=== PATIENT | female | born 1985 | race Caucasian/White ===

== ENCOUNTER 2018-11-16 14:17 | Outpatient (CLI) | payer MEDICAID ==
[~2018-11-16] VITALS: Ht 144.8 cm; Wt 63.2 kg
[~2018-11-16 14:17] MED LIST: FERR27TA PO; PREN-39 PO
[2018-11-16 15:18] VITALS: Ht 144.8 cm; Wt 63.2 kg
[2018-11-16 15:19] VITALS: BP 103/52; PULSE 69; RESP 18
[2018-11-16] MEDS ORDERED: TERBUTALINE 1 MG/ML INJ SC ONE (20:00)
[2018-11-16] MEDS ORDERED: LACTATED RINGER'S 1,000 ML IV SCH (20:00)
--- NOTE | 2018-11-16 23:46 | PN ---
Triage Information Date/Time November 16, 2018 Reason for visit: Uterine contractions Weeks of Gestation 33w 6d /Para 5/2 Diabetes: none Hypertention: none Objective Vital Signs Date Temp Pulse Resp B/P (MAP) Pulse Ox O2 O2 Flow FiO2 Time Delivery Rate 11/16/18 97.5 69 18 103/52 15:19 (69) Heart Rate: 140's Heart Rate Comments Accels to 170 bpm. No decels. Contractions: >10 Minutes Apart Exam closed Results/Medications Result Diagram: 11/16/18 1610 Results 24 hrs Laboratory Tests Test 11/16/18 16:10 11/16/18 16:45 White Blood Count 7.3 Red Blood Count 4.01 L Hemoglobin 10.1 L Hematocrit 33.4 L Mean Corpuscular Volume 83.3 Mean Corpuscular Hemoglobin 25.2 L Mean Corpuscular Hemoglobin Concent 30.2 L Red Cell Distribution Width 21.4 H Platelet Count 211 Mean Platelet Volume 11.0 H Immature Granulocytes % 0.400 Neutrophils % 66.0 Lymphocytes % 25.8 Monocytes % 7.0 Eosinophils % 0.5 Basophils % 0.3 Nucleated Red Blood Cells % 0.0 Immature Granulocytes # 0.030 Neutrophils # 4.8 Lymphocytes # 1.9 Monocytes # 0.5 Eosinophils # 0.0 Basophils # 0.0 Nucleated Red Blood Cells # 0.0 Urine Color YELLOW Urine Clarity CLEAR Urine pH 6.0 Urine Specific [place] 1.011 Urine Ketones 2+ H Urine Nitrite NEGATIVE Urine Bilirubin NEGATIVE Urine Urobilinogen NEGATIVE Urine Leukocyte Esterase NEGATIVE Urine Hemoglobin NEGATIVE Urine Glucose NEGATIVE Urine Total Protein NEGATIVE Medications Current Medications Lactated Ringer's 1,000 ml @ 500 mls/hr Q2H IV Last administered on 11/16/18at 20:25; Admin Dose 500 MLS/HR; Start 11/16/18 at 20:00 Imaging Results BPP 8/8 with an MANDEEP of 12.9. Cervix is 3.3 cm and closed Disposition: Discharge Assessment/Plan A: IUP at 33w 6d. False labor. P: After IV hydration and one dose of terbutaline it is apparent the pt's discomfort is related to the baby's movements. D/C home with PTL precautions. LYRIC EVANS MD Nov 16, 2018 23:46
== END 2018-11-16 23:50 | disposition home or self-care (01) ==
LOC: OBT 14:17 → L-D 14:18 → OBT 23:50
PROVIDERS: ATTEND Obstetrics & Gynecology
DX: O62.9 Abnormality of forces of labor, unspecified (principal); Z3A.33 33 weeks gestation of pregnancy
CPT/HCPCS: 76817; 76818; 81003; 85025; 87086; J3105; J7120; Z7500; G0463

== ENCOUNTER 2018-12-11 09:00 | Inpatient (IN) | payer MEDICAID ==
[~2018-12-11] VITALS: Ht 149.9 cm; Wt 65.2 kg
[2018-12-14 09:01] VITALS: Ht 149.9 cm; Wt 65.2 kg
[2018-12-14] MEDS ORDERED: OXYTOCIN 30 UNITS/LR 500 ML IV PRN ×2 (09:30→22:00)
[2018-12-14] MEDS ORDERED: BUTORPHANOL 2 MG INJ IV PRN ×2 (09:30→10:00)
[2018-12-14] MEDS ORDERED: MISOPROSTOL 200 MCG TAB PR PRN ×2 (09:30→22:00)
[2018-12-14] MEDS ORDERED: METHYLERGONOVINE 0.2 MG INJ IM PRN ×2 (09:30→22:00)
[2018-12-14] MEDS ORDERED: IBUPROFEN 600 MG TAB PO PRN (09:30)
[2018-12-14] MEDS ORDERED: CARBOPROST 250 MCG INJ IM PRN ×2 (09:30→22:00)
[2018-12-14] MEDS ORDERED: OXYTOCIN 30 UNITS/LR 500 ML IV SCH ×3 (09:30→11:30)
[2018-12-14] MEDS ORDERED: LIDOCAINE 1% (MPF) 30 ML INJ INJ PRN (09:30)
[2018-12-14] MEDS: LACTATED RINGER'S 1,000 ML IV SCH ×4 (09:33→16:01)
[2018-12-14] MEDS ORDERED: MINERAL OIL 240 ML LOT TOP ONE (13:00)
--- NOTE | 2018-12-14 13:07 | PREAC ---
Date/Time of Note Date/Time of Note DATE: 12/14/18 TIME: 13:05 Anesthesia Eval and Record Evaluation Time Pre-Procedure Interview DATE: 12/14/18 TIME: 13:05 Age 33 Sex female NPO: 8 hrs Preoperative diagnosis IUP Planned procedure L&D Epidural Past Medical History Past Medical History: Includes Endo: Diabetes Surgery & Anesthesia Issues No known issue Meds Anticoagulation: No Beta [place] within 24 hr: No Reason Beta [place] not given: Pt. not on B-[place] Reported Medications Ferrous Sulfate (Iron) 1 Tab Tablet, 1 TAB PO BID 05/27/12 Vits W-Ca,Fe,Fa(<1MG) ( Vitamins) 1 Tab Tablet, 1 TAB PO DAILY 05/27/12 Current Medications Lactated Ringer's 1,000 ml @ 125 mls/hr Q8H IV Last administered on 12/14/18at 10:46; Admin Dose 125 MLS/HR; Start 12/14/18 at 09:02 Butorphanol Tartrate (Stadol) 2 mg Q2H PRN IV .PAIN; Start 12/14/18 at 09:30 Lidocaine (Xylocaine 1% (Mpf)) 30 ml ONCE PRN INJ .EPISIOTOMY; Start 12/14/18 at 09:30 Oxytocin/Lactated Ringer's 500 ml @ 500 mls/hr ONCE POST IV ; Start 12/14/18 at 09:30 Oxytocin/Lactated Ringer's 500 ml @ 125 mls/hr POST IV ; Start 12/14/18 at 09:30 Ibuprofen (Motrin) 600 mg ONCE PRN PO .PAIN 1-5; Start 12/14/18 at 09:30 Oxytocin/Lactated Ringer's 500 ml @ 0 mls/hr ONCE PRN IV .VAGINAL BLEEDING Last administered on 12/14/18at 11:36; Admin Dose 2 MLS/HR; Start 12/14/18 at 09:30 Methylergonovine Maleate (Methergine) 0.2 mg ONCE PRN IM .VAGINAL BLEEDING; Start 12/14/18 at 09:30 Carboprost Tromethamine (Hemabate) 250 mcg ONCE PRN IM .VAGINAL BLEEDING; Start 12/14/18 at 09:30 Misoprostol (Cytotec) 1,000 mcg ONCE PRN UT .VAGINAL BLEEDING; Start 12/14/18 at 09:30 Butorphanol Tartrate (Stadol) 1 mg Q2H PRN IV PAIN; Start 12/14/18 at 10:00 Oxytocin/Lactated Ringer's 500 ml @ 0 mls/hr FOR INDUCTION IV ; Start 12/14/18 at 11:30 Ursodiol (Actigall) 300 mg TID PO ; Start 12/14/18 at 13:00 Mineral Oil (Eucerin Lotion) 1 applic ONCE ONCE TOP ; Start 12/14/18 at 13:00; Stop 12/14/18 at 13:01; Status UNV Meds reviewed: Yes Allergies Coded Allergies: No Known Drug Allergy (Verified Allergy, Unknown, 05/27/12) Allergies Reviewed: Yes Labs/Studies Labs Reviewed: Reviewed by anesthesiologist Result Diagram: 12/14/18 0900 Laboratory Tests 12/14/18 09:00 Blood Bank Test 12/14/18 09:00 Antibody Screen NEGATIVE Blood Type O POSITIVE Rh Immune Globulin Candidate NO test: Positive Studies: ECG Pre-procedure Exam Last vitals BP:122/67, P:78, Spo2:100%, T:98,9 Airway: Adequate mouth opening, Adequate thyromental dist Mallampati: Mallampati II Teeth: Normal Lung: Normal Heart: Normal ASA Physical Status ASA physical status: 2 Emergency: None Planned Anesthetic Neuraxial: Epidural Planned Pain Management Epidural Pre-operative Attestations Prior to commencing anesthesia and surgery, the patient was re-evaluated, there was verification of: *The patient's identity *The results of appropriate recent lab work and preoperative vital signs *The above evaluation not changing prior to induction *Anesthetic plan, risk benefits, alternative and complications discussed with patient/family; questions answered; patient/family understands, accepts and wishes to proceed. WHIT MARROQUIN MD Dec 14, 2018 13:07
[2018-12-14] MEDS ORDERED: FENTAnyl 2MCG/ML-ROPIV 0.2% 100 ML ONE (13:09)
[2018-12-14] MEDS ORDERED: DIPHENHYDRAMINE 50 MG INJ IV PRN (13:30)
[2018-12-14] MEDS ORDERED: FENTAnyl 2MCG/ML-ROPIV 0.2% 100 ML BAG EPI SCH (13:30)
[2018-12-14] MEDS ORDERED: MINERAL OIL LIGHT 10 ML VIAL TOP SCH (13:30)
[2018-12-14] MEDS ORDERED: ONDANSETRON 4 MG INJ IV PRN (13:30)
[2018-12-14] MEDS ORDERED: NALOXONE (0.4 MG/ML) INJ IV PRN (13:30)
--- NOTE | 2018-12-14 14:43 | HP ---
Date/Time of Note Date/Time of Note DATE: 12/14/18 TIME: 14:40 OB - History Hx of Present Free Text/Dictation 33-year-old female 5 para 2 AB 2 at 37 weeks and 1 day gestation admitted for induction of labor because of cholestasis Last Menstrual Period: Mar 24, 2018 Estimated Due Date: January 03, 2019 : 5 Para: 2 Spontaneous : 2 Care: Good Care Ultrasounds: Normal mid trimester US Obstetrical Complications: Gestational Diabetes (Crosstable), Other (Cholestasis of ) Past Family/Social History * Past Medical, Surgical, Family and Obstetric Histories reviewed from chart. Blood Type: O+ Rubella: immune RPR/VDRL: Negative GBS Status: Negative HBsAG: Negative OB Admission Exam Physical Exam HEENT: WNL Heart: Rhythm Normal Lungs: Clear, Equal Abdomen: WNL Extremities: Normal Reflexes: Normal Cervical Dilatation: 2cm Effacement: 50% Station: -3 Membranes: Intact Heart Rate: 140's Accelerations: Accelerations Present Decelerations: No Decelerations Varibility: Marked Contractions on Admission: 6-10 Minutes Apart Last 72 hourBlood Glucose Bedside Glucose - 72 Hours Test 12/14/18 14:21 Bedside Glucose 84 mg/dL (70-220) Last 72 hours Lab Results CBC & BMP 12/14/18 09:00 OB Assessment/Plan Reason for admission: induction of labor Other Assessment: Gestational diabetes and cholestasis of 3 at 37 weeks plus Other plan: Pitocin augmentation of labor was started JULIO PETERSON MD Dec 14, 2018 14:43
[2018-12-14] MEDS ORDERED: KETOROLAC 30 MG INJ IV STA (17:55)
--- NOTE | 2018-12-14 17:55 | LDN ---
Date/Time of Note Date/Time of Note DATE: 12/14/18 TIME: 17:53 Delivery Summary Normal spontaneous vaginal delivery of a viable over intact perineum Weeks of Gestation 37+ week Placenta Delivered: Spontaneously, Intact & Complete Meconium: none Episiotomy: No Perineal laceration: 0 Laceration repair: Small right labia minora separation was reapproximated using 2-0 Vicryl stitch in several layers Anesthesia type: Epidural Estimated blood loss: 200 Sponge & Needle done & correct: Yes All needle counts correct: Yes Any foreign bodies felt in the: No Delivery Information Sex Infant Sex: female Apgars 1 Minute: 9 5 Minute: 9 Suctioning Nose & mouth suctioned at nir: Yes Delee suction performed: No Umbilical Cord Umbilical cord with: 3 Vessels Cord presentations: no nuchal cord Cord Blood was obtained: Yes Mother & Baby Disposition Disposition Mom & Baby to Maternity; Good: Yes (Mother and baby were recovered in good condition) Mom transferred to: Other (Maternity) Baby to NICU: No JULIO PETERSON MD Dec 14, 2018 17:55
[2018-12-14 19:52] VITALS: BP 116/59; PULSE 76; RESP 18
[2018-12-14 20:15] VITALS: BP 115/59; PULSE 63; RESP 18
[2018-12-14] MEDS ORDERED: LACTATED RINGER'S 1,000 ML IV* SCH (21:31)
[2018-12-14] MEDS ORDERED: BENZOCAINE 20% 56 ML SPRAY TOP PRN (22:00)
[2018-12-14] MEDS ORDERED: DIBUCAINE 1% 30 GM OINT TOP PRN (22:00)
[2018-12-14] MEDS ORDERED: HYDROCODONE/APAP (5/325) TAB PO PRN ×2 (22:00)
[2018-12-14] MEDS ORDERED: ZOLPIDEM 5 MG TAB PO PRN (22:00)
[2018-12-14] MEDS ORDERED: LANOLIN HPA 1 PKT TOP PRN (22:00)
[2018-12-14] MEDS ORDERED: WITCH HAZEL/GLYCERIN PAD PR PRN (22:00)
[2018-12-14] MEDS: URSODIOL 300 MG CAP PO SCH ×2 (22:11→22:15)
[2018-12-14] MEDS: SENNA/DOCUSATE NA (8.6MG/50MG) TAB PO SCH (22:11)
[2018-12-14] MEDS: MAGNESIUM HYDROXIDE 30ML CUP PO SCH (22:20)
[2018-12-14] MEDS ORDERED: ESTROGENS CONJUGATED 42.5 GM VAG CR TOP SCH (22:30)
[2018-12-15] MEDS: IBUPROFEN 600 MG TAB PO SCH ×5 (00:16→23:49)
[2018-12-15] MEDS: CEPHALEXIN 500 MG CAP PO SCH ×5 (00:16→23:50)
[2018-12-15] MEDS: CONJUGATED ESTROGENS TOP SCH ×3 (00:57→21:00)
[2018-12-15 04:15] VITALS: BP 100/59; PULSE 66; RESP 17
[2018-12-15 07:45] VITALS: BP 96/42; PULSE 62; RESP 18
[2018-12-15] MEDS: SENNA/DOCUSATE NA (8.6MG/50MG) TAB PO SCH ×2 (09:49→21:52)
[2018-12-15] MEDS: MAGNESIUM HYDROXIDE 30ML CUP PO SCH ×2 (09:49→21:52)
[2018-12-15] MEDS: URSODIOL 300 MG CAP PO SCH ×3 (09:49→21:52)
[2018-12-15 16:00] VITALS: BP 104/51; PULSE 66; RESP 16
--- NOTE | 2018-12-15 16:55 | DS ---
Date/Time of Note Date/Time of Note Home today or next day DATE: 12/15/18 TIME: 16:54 Obstetrical Discharge Record Final Diagnosis Final Diagnosis: Term delivered Other Final Diagnosis Status post vaginal delivery Vaginal Delivery Obstetrical Delivery: Spontaneous, Laceration, Repaired Complications Augmentation: Yes Condition on Discharge Physical Assessment Last Vitals: See nurse's notes Voiding: Yes Bowel Movement: Yes Breast: Soft, non-tender, Filling Fundus: Firm Abdomen and Incision: Abdomen is soft with firm fundus Episiotomy: Labia minora laceration appears to be attached Calf Tenderness: No Patient Condition: Good JULIO PETERSON MD Dec 15, 2018 16:55
--- NOTE | 2018-12-15 16:56 | PD.PPDC ---
[employer] Discharge Instruction Provider Information Physician Information 34-year-old female had vaginal delivery Diagnosis [id number] Final Diagnosis: [id number] Status post vaginal delivery Condition [id number] Patient Condition: Ublhf1d Good Diet [id number] Diet: Rubyz3j Resume Regular Diet Activity/Restrictions [id number] Activity: Zasih5p Normal Activity May Shower [id number] Restrictions: Nfctk3r Nothing in the Vagina [id number] Return to Work or School: [id number] Feb 01, 2019 Follow-up Follow-up with Physician: 2, 4, Week/Weeks (In clinic) Return to clinic for [id number] OB Instructions: [id number] Breast Tenderness Depression Comment: Pelvic rest for 6 weeks JULIO PETERSON MD Dec 15, 2018 16:56
[2018-12-15] MEDS ORDERED: IBUP-1542 PO (16:57)
[2018-12-15 20:00] VITALS: BP 112/62; PULSE 66; RESP 17
[2018-12-16 04:00] VITALS: BP 101/50; PULSE 62; RESP 18
[2018-12-16] MEDS: CEPHALEXIN 500 MG CAP PO SCH ×2 (06:01→13:07)
[2018-12-16] MEDS: IBUPROFEN 600 MG TAB PO SCH ×2 (06:01→13:07)
[2018-12-16 08:00] VITALS: BP 113/64; PULSE 51; RESP 18
[2018-12-16] MEDS: MAGNESIUM HYDROXIDE 30ML CUP PO SCH (08:22)
[2018-12-16] MEDS: SENNA/DOCUSATE NA (8.6MG/50MG) TAB PO SCH (08:22)
[2018-12-16] MEDS: URSODIOL 300 MG CAP PO SCH ×2 (08:23→13:07)
[2018-12-16] MEDS: CONJUGATED ESTROGENS TOP SCH (08:25)
[2018-12-16] MEDS ORDERED: VARICELLA VACCINE LIVE/PF 1,350 UNIT/0.5 ML ML SC* ONE (09:00)
[2018-12-16] MEDS ORDERED: DIPHTH/TET/ACEL PERTUSS (ADULT) 0.5 ML VIAL IM* ONE (09:00)
[2018-12-16] MEDS ORDERED: MEASLES,MUMPS,RUBELLA VACCINE INJ SC* ONE (09:00)
--- NOTE | 2018-12-16 13:04 | PAC ---
Date/Time of Note Date/Time of Note DATE: 12/16/18 TIME: 13:03 Post-Anesthesia Notes Post-Anesthesia Note Last documented vital signs Vital Signs Date Temp Pulse Resp B/P (MAP) Pulse Ox O2 O2 Flow FiO2 Time Delivery Rate 12/16/18 97.8 51 18 113/64 Room Air 08:00 (80) Activity: WNL Respiratory function: WNL Cardiovascular function: WNL Mental status: Baseline Pain reasonably controlled: Yes Hydration appropriate: Yes Nausea/Vomiting absent: Yes Comments BP:112/67, P:78, Spo2:100%, T:98,9 WHIT MARROQUIN MD Dec 16, 2018 13:04
--- NOTE | 2018-12-17 15:30 | DELSUM ---
Delivery Summary A-C Datetime Report Generated by CPN: 12/17/2018 15:30 DELIVERY PERSONNEL Will Call Clerk: Najma Jamison MATERNAL INFORMATION Delivery Anesthesia: Epidural Medications in Delivery: LR WITH 30 UNITS PITOCIN Delivery QBL (ml): 200 Placenta Cultured: No Maternal Complications: Other Other Maternal Complications: CHOLESTASIS LABOR SUMMARY EDC: 12/29/2018 00:00 No. Babies in Womb: 1 Attempted: No Labor Anesthesia: Epidural LABOR INFORMATION Reason for Induction: Other Reason for Induction- Other: CHOLESTASIS Onset of Labor: 12/14/2018 09:51 Complete Dilatation: 12/14/2018 17:17 Oxytocin: Induction Group B Beta Strep: Negative Antibiotics # of Doses: 0 Steroids Given: None Reason Steroids Not Administered: Not Applicable MEMBRANES Membranes Rupture Method: Artificial Rupture of Membranes: 12/14/2018 14:37 Length of Rupture (hr): 2.92 Amniotic Fluid Color: Clear Amniotic Fluid Amount: Small Amniotic Fluid Odor: Normal STAGES OF LABOR Stage 1 hr: 7 Stage 1 min: 26 Stage 2 hr: 0 Stage 2 min: 15 Stage 3 hr: 0 Stage 3 min: 2 Total Time in Labor hr: 7 Total Time in Labor min: 43 VAGINAL DELIVERY Episiotomy: None Laceration Extension: First Degree Laceration Type: Perineal Laceration Repair: Yes Initial Vag Sponge Count: 10 Final Vag Sponge Count: 10 Initial Vag Sharps Count: 3 Final Vag Sharps Count: 3 Sponge Count Correct: Yes Sharps Count Correct: Yes BABY A INFORMATION Infant Delivery Date/Time: 12/14/2018 17:32 Method of Delivery: Vaginal Born in Route : No : N/A Forceps: N/A Vacuum Extraction: N/A Shoulder Dystocia : N/A SHOULDER DYSTOCIA BABY A Infant Delivery Date/Time: 12/14/2018 17:32 PRESENTATION/POSITION BABY A Presentation: Cephalic Cephalic Presentation: Vertex Breech Presentation: N/A PLACENTA INFORMATION BABY A Placenta Delivery Time : 12/14/2018 17:34 Placenta Method of Delivery: Spontaneous Placenta Status: Delivered SCORES BABY A Heart Rate 1 min: >100 bpm Resp Effort 1 min: Good Cry Reflex Irritability 1 min: Cough/Sneeze/Pulls Away Muscle Tone 1 min: Active Motion Color 1 min: Body [place], Extremit Blue Resuscitation Effort 1 min: Tactile Stimulation SCORE 1 MIN: 9 Heart Rate 5 min: >100 bpm Resp Effort 5 min: Good Cry Reflex Irritability 5 min: Cough/Sneeze/Pulls Away Muscle Tone 5 min: Active Motion Color 5 min: Body [place], Extremit Blue Resuscitation Effort 5 min: Tactile Stimulation SCORE 5 MIN: 9 INFORMATION BABY A Gestational Age at Delivery: 37.6 Gestational Status: Early Term- 37- 38.6 Weeks Outcome : Liveborn Condition : Stable Infant Sex: Female IDENTIFICATION/MEDS BABY A ID Band Number: [id number] ID Band Location: Right Leg; Left Arm Sensor Applied: Yes Sensor Number: [id number] Sensor Location : Cord Clamp Vitamin K Given : Not Given Erythromycin Given: Not Given WEIGHT/LENGTH BABY A Infant Birthweight (gm): 3255 Infant Weight (lb): 7 Infant Weight (oz): 3 Length (in): 19.00 Infant Length (cm): 48.26 CORD INFORMATION BABY A No. Cord Vessels: 3 Nuchal Cord : N/A Cord Blood Taken: Yes Infant Suction: Mouth; Nose ASSESSMENT BABY A Infant Complications: None Physical Findings at Delivery: Within Normal Limits Respirations: Appears Normal Aquatics Lifeguard/ALS Called : No Transferred To: Remains with Mother
== END 2018-12-16 15:00 | disposition home or self-care (01) | DRG 805 ==
LOC: L-D 12-14 08:40 → PP1 12-14 20:09
PROVIDERS: ADMIT Obstetrics & Gynecology; ATTEND Obstetrics & Gynecology
PROC: 0UQMXZZ Repair Vulva, External Approach (ICD-10-PCS; 2018-12-14)
PROC: 10E0XZZ Delivery of Products of Conception, External Approach (ICD-10-PCS; principal; 2018-12-14 09:00)
DX: O26.62 Liver and biliary tract disorders in childbirth (principal); K83.1 Obstruction of bile duct; Z37.0 Single live birth; O24.429 Gestational diabetes mellitus in childbirth, unspecified control; O70.0 First degree perineal laceration during delivery; Z3A.37 37 weeks gestation of pregnancy
CPT/HCPCS: 62322; 76815; 80053; 82962; 85025; 85610; 85730; 86592; 86850; 86900; 86901; 87340; 90716; J2590; J3010; J7120